=== PATIENT | female | born 1955 | race Caucasian/White ===

== ENCOUNTER 2017-06-22 15:37 | Emergency (ER) | payer OTHER ==
[~2017-06-22] VITALS: Ht 160 cm; Wt 130.0 kg
[~2017-06-22 15:37] MED LIST: AMARYL; AMARYL4 MG PO; ASPIRIN325 MG PO; BENADRYL25 MG PO; BUPROPION HCL150 M2 PO; CLEOCIN300 MG PO; CLINDAMYCIN HC300 MG PO; COMBIVENT INH14.7 GM IH; COMBIVENT RESPIM4 GM IH; COZAAR25 MG PO; CYMBALTA60 MG PO; DULOXETINE; DULOXETINE HCL30 MG PO; DULOXETINE HCL60 MG PO; EPIPEN ADU0.3 MG/0.3 IM; GLIMEPIRIDE4 MG PO; LANTUS; LANTUS 3 M100 UNITS/ SQ; LISINOPRIL; LO-DOSE ASPIRIN81 M1 PO; LOPRESSOR12.5 MG PO; LORTAB 7.5/51 TABLET PO; LYRICA150 MG PO; LYRICA75 MG PO; MEDROL DOSEPAK4 MG PO; NEURONTIN; NEURONTIN300 MG PO; NOVOLOG MI100 UNIT/M PO; NOVOLOG PE100 UNITS/ SC; OXYCODONE-APAP1 EACH PO; PEPCID20 MG PO; PLAVIX75 MG PO; SIMVASTATIN10 MG PO; TOUJEO SOL300 UNIT/1 SC; TRAMADOL; TRAMADOL HCL50 MG PO; ULTRAM50 MG PO; VICODIN; ZOCOR
[2017-06-22 17:08] LABS: HEMATOCRIT 53.5 % (36.0-46.0); MCH 29.3 PG (29.0-34.0); MCV 91.8 FL (83-99); MEAN PLAT.VOLUME 11.1 uM^3 (9.5-12.4); PLATELET COUNT 119 K/uL (156-360); RBC DIS.WIDTH-CV 14.5 % (11.8-14.6); RED BLOOD COUNT 5.83 M/uL (3.80-5.20)
[2017-06-22 17:16] LABS: CHLORIDE 106 mEq/L (99-109); POTASSIUM 4.3 mEq/L (3.7-5.4); SODIUM 142 mEq/L (136-147)
[2017-06-22 17:18] LABS: GLUCOSE 268 mg/dL (70-99)
[2017-06-22 17:19] LABS: ANION GAP 9 MEQ/L (2-14)
[2017-06-22 17:21] LABS: GFR ESTIMATE (CALCULATED) 44 mL/min/
[2017-06-22 17:22] LABS: UREA NITROGEN (BUN) 18 mg/dL (9-23)
[2017-06-22] MEDS ORDERED: NORCO 5/3251 TABLET PO (18:35)
[2017-06-22] MEDS ORDERED: CLEOCIN300 MG PO (18:35)
[2017-06-22 19:33] VITALS: BP 163/75
== END 2017-06-22 19:35 | disposition home or self-care (01) ==
LOC: EME 15:37
PROVIDERS: Physician Assistant
DX: L03.114 Cellulitis of left upper limb (principal); I12.9 Hypertensive chronic kidney disease with stage 1 through stage 4 chronic kidney disease, or unspecified chronic kidney disease; E11.22 Type 2 diabetes mellitus with diabetic chronic kidney disease; N18.9 Chronic kidney disease, unspecified; Z79.4 Long term (current) use of insulin; I25.2 Old myocardial infarction; E78.5 Hyperlipidemia, unspecified; Z86.73 Personal history of transient ischemic attack (TIA), and cerebral infarction without residual deficits; Z88.6 Allergy status to analgesic agent; Z88.2 Allergy status to sulfonamides; Z88.0 Allergy status to penicillin; F17.200 Nicotine dependence, unspecified, uncomplicated
CPT/HCPCS: 80048; 83605; 85027; 87040; 93971; 99281; 99285; J7030

== ENCOUNTER 2018-01-11 21:51 | Emergency (ER) | payer OTHER ==
[~2018-01-11] VITALS: Ht 160 cm; Wt 130.7 kg
[~2018-01-11 21:51] MED LIST changes: +NORCO 5/3251 TABLET PO
[2018-01-11 23:17] LABS: HEMOGLOBIN 17.8 G/DL (11.9-15.5); MCH 30.3 PG (29.0-34.0); PLATELET COUNT 110 K/uL (156-360); RBC DIS.WIDTH-CV 15.8 % (11.8-14.6); RBC DIS.WIDTH-SD 53.2 % (39-53); RED BLOOD COUNT 5.87 M/uL (3.80-5.20); WHITE BLOOD COUNT 9.1 K/uL (4.1-10.2)
[2018-01-11 23:22] LABS: CHLORIDE 102 mEq/L (99-109); POTASSIUM 5.5 mEq/L (3.7-5.4); SODIUM 138 mEq/L (136-147)
[2018-01-11 23:23] LABS: GLUCOSE 304 mg/dL (70-99)
[2018-01-11 23:27] LABS: CREATININE 1.6 mg/dL (0.6-1.3); GFR ESTIMATE (CALCULATED) 35 mL/min/
[2018-01-11 23:28] LABS: UREA NITROGEN (BUN) 28 mg/dL (9-23)
[2018-01-12] MEDS ORDERED: DOXYCYCLINE MO100 MG PO (00:07)
[2018-01-12 00:26] VITALS: BP 115/57
== END 2018-01-12 00:27 | disposition home or self-care (01) ==
LOC: EME 21:51
PROVIDERS: Physician Assistant
PROC: 0H9NXZZ Drainage of Left Foot Skin, External Approach (ICD-10-PCS; principal; 2018-01-11)
DX: L03.116 Cellulitis of left lower limb (principal); E11.40 Type 2 diabetes mellitus with diabetic neuropathy, unspecified; E11.22 Type 2 diabetes mellitus with diabetic chronic kidney disease; I13.0 Hypertensive heart and chronic kidney disease with heart failure and stage 1 through stage 4 chronic kidney disease, or unspecified chronic kidney disease; N18.9 Chronic kidney disease, unspecified; J44.9 Chronic obstructive pulmonary disease, unspecified; E78.5 Hyperlipidemia, unspecified; I25.10 Atherosclerotic heart disease of native coronary artery without angina pectoris; K21.9 Gastro-esophageal reflux disease without esophagitis; F41.9 Anxiety disorder, unspecified; F32.9 Major depressive disorder, single episode, unspecified; F17.200 Nicotine dependence, unspecified, uncomplicated; I25.2 Old myocardial infarction; Z79.4 Long term (current) use of insulin; Z79.82 Long term (current) use of aspirin; Z79.02 Long term (current) use of antithrombotics/antiplatelets; Z95.5 Presence of coronary angioplasty implant and graft; Z86.73 Personal history of transient ischemic attack (TIA), and cerebral infarction without residual deficits; Z85.9 Personal history of malignant neoplasm, unspecified; Z90.710 Acquired absence of both cervix and uterus; Z88.5 Allergy status to narcotic agent; Z88.2 Allergy status to sulfonamides; Z88.1 Allergy status to other antibiotic agents; Z88.0 Allergy status to penicillin
CPT/HCPCS: 73630; 80048; 85027; 94640; 99281; 99285; J7050

== ENCOUNTER 2018-04-29 15:32 | Inpatient (IN) | payer OTHER ==
[~2018-04-29] VITALS: Ht 160 cm; Wt 134.5 kg
[~2018-04-29 15:32] MED LIST changes: +DOXYCYCLINE MO100 MG PO; -LYRICA150 MG PO; +LYRICA200 MG PO
[2018-04-29 17:09] LABS: HEMATOCRIT 49.8 % (36.0-46.0); HEMOGLOBIN 16.8 G/DL (11.9-15.5); MCH 31.1 PG (29.0-34.0); MCHC 33.7 G/DL (30.0-36.0); MCV 92.1 FL (83-99); PLATELET COUNT 144 K/uL (156-360); RBC DIS.WIDTH-SD 47.2 % (39-53); RED BLOOD COUNT 5.41 M/uL (3.80-5.20); WHITE BLOOD COUNT 10.8 K/uL (4.1-10.2)
[2018-04-29 17:17] LABS: CHLORIDE 103 mEq/L (99-109); POTASSIUM 4.3 mEq/L (3.7-5.4); SODIUM 137 mEq/L (136-147)
[2018-04-29 17:19] LABS: GLUCOSE 286 mg/dL (70-99)
[2018-04-29 17:23] LABS: CREATININE 1.4 mg/dL (0.6-1.3); GFR ESTIMATE (CALCULATED) 40 mL/min/
[2018-04-29 17:24] LABS: UREA NITROGEN (BUN) 19 mg/dL (9-23)
[2018-04-29] MEDS ORDERED: CYMBALTA60 MG PO (19:20)
[2018-04-29] MEDS ORDERED: BACTROBAN OINTM22 GM TP (19:24)
[2018-04-29] MEDS ORDERED: CALCIPOTRIENE60 G1 TP (19:24)
[2018-04-29] MEDS ORDERED: NITROSTAT0.4 MG SL (19:25)
[2018-04-29] MEDS ORDERED: TRULICITY1.5 MG/0.5 SC (19:25)
[2018-04-29] MEDS ORDERED: ZYBAN 150 MG T150 MG PO (19:26)
[2018-04-29] MEDS ORDERED: FLOVENT 22120 INHALA IH (19:26)
[2018-04-29 23:06] VITALS: BP 185/95
[2018-04-30 04:31] VITALS: BP 146/71
[2018-04-30 07:03] LABS: BASOPHIL (%) 0.1 % (0-1); EOSINOPHIL (%) 0 % (0-5); HEMATOCRIT 50.5 % (36.0-46.0); HEMOGLOBIN 16.2 G/DL (11.9-15.5); IMMATURE GRANULOCYTE (%) 2.2 % (0.0-0.7); LYMPHOCYTE (%) 4.7 % (15-42); LYMPHOCYTE COUNT 0.4 K/uL (1.0-2.8); MCH 29.8 PG (29.0-34.0); MCHC 32.1 G/DL (30.0-36.0); MCV 92.8 FL (83-99); MONOCYTE (%) 1.4 % (3-12); MONOCYTE COUNT 0.1 K/uL (0-0.8); NEUTROPHIL (%) 91.6 % (45-76); NEUTROPHIL COUNT 8.5 K/uL (1.8-6.4); PLATELET COUNT 141 K/uL (156-360); RBC DIS.WIDTH-CV 14.1 % (11.8-14.6); RED BLOOD COUNT 5.44 M/uL (3.80-5.20); WHITE BLOOD COUNT 9.2 K/uL (4.1-10.2)
[2018-04-30 07:34] VITALS: BP 141/72
[2018-04-30 07:39] LABS: CHLORIDE 101 MEQ/L (99-109); CREATININE 1.5 MG/DL (0.6-1.3); GFR ESTIMATE (CALCULATED) 37 mL/min/; GLUCOSE 474 mg/dL (70-99); POTASSIUM 4.9 MEQ/L (3.7-5.4); SODIUM 136 MEQ/L (136-147); UREA NITROGEN (BUN) 28 mg/dL (9-23)
[2018-04-30 10:07] LABS: HEMOGLOBIN A1c (GLYCOHEMOGLOB) 8.8 % (Below 5.7)
[2018-04-30 11:47] VITALS: BP 144/68
[2018-04-30 15:17] VITALS: BP 146/71
[2018-04-30 19:22] VITALS: BP 144/66
[2018-04-30 23:50] VITALS: BP 139/65
[2018-05-01 04:12] VITALS: BP 146/66
[2018-05-01 06:37] LABS: BASOPHIL (%) 0.2 % (0-1); EOSINOPHIL (%) 0.5 % (0-5); HEMATOCRIT 50.3 % (36.0-46.0); HEMOGLOBIN 15.7 G/DL (11.9-15.5); LYMPHOCYTE (%) 12.5 % (15-42); LYMPHOCYTE COUNT 1.1 K/uL (1.0-2.8); MCH 29.2 PG (29.0-34.0); MCHC 31.2 G/DL (30.0-36.0); MCV 93.7 FL (83-99); MONOCYTE (%) 5.2 % (3-12); MONOCYTE COUNT 0.5 K/uL (0-0.8); NEUTROPHIL (%) 80.6 % (45-76); PLATELET COUNT 133 K/uL (156-360); RBC DIS.WIDTH-CV 13.9 % (11.8-14.6); RBC DIS.WIDTH-SD 48.7 % (39-53); RED BLOOD COUNT 5.37 M/uL (3.80-5.20); WHITE BLOOD COUNT 8.7 K/uL (4.1-10.2)
[2018-05-01 06:57] LABS: CHLORIDE 107 MEQ/L (99-109); CREATININE 1.4 MG/DL (0.6-1.3); GFR ESTIMATE (CALCULATED) 40 mL/min/; GLUCOSE 264 mg/dL (70-99); POTASSIUM 4.6 MEQ/L (3.7-5.4); UREA NITROGEN (BUN) 30 mg/dL (9-23)
[2018-05-01 06:58] LABS: SODIUM 143 MEQ/L (136-147)
[2018-05-01 08:20] VITALS: BP 136/95
[2018-05-01 11:50] VITALS: BP 161/74
[2018-05-01 15:35] VITALS: BP 151/68
[2018-05-01 19:15] VITALS: BP 136/74
[2018-05-01 23:14] VITALS: BP 113/53
[2018-05-02 05:19] VITALS: BP 140/65
[2018-05-02 07:19] VITALS: BP 140/81
[2018-05-02 07:51] LABS: BASOPHIL (%) 0.5 % (0-1); EOSINOPHIL (%) 1.7 % (0-5); EOSINOPHIL COUNT 0.1 K/uL (0-0.3); HEMATOCRIT 49.3 % (36.0-46.0); HEMOGLOBIN 15.7 G/DL (11.9-15.5); IMMATURE GRANULOCYTE (%) 1.8 % (0.0-0.7); LYMPHOCYTE (%) 18.4 % (15-42); LYMPHOCYTE COUNT 1.4 K/uL (1.0-2.8); MCH 29.8 PG (29.0-34.0); MCHC 31.8 G/DL (30.0-36.0); MCV 93.7 FL (83-99); MONOCYTE (%) 5.5 % (3-12); MONOCYTE COUNT 0.4 K/uL (0-0.8); NEUTROPHIL (%) 72.1 % (45-76); NEUTROPHIL COUNT 5.6 K/uL (1.8-6.4); PLATELET COUNT 148 K/uL (156-360); RBC DIS.WIDTH-CV 14.3 % (11.8-14.6); RBC DIS.WIDTH-SD 49.3 % (39-53); RED BLOOD COUNT 5.26 M/uL (3.80-5.20); WHITE BLOOD COUNT 7.8 K/uL (4.1-10.2)
[2018-05-02 08:06] LABS: ALBUMIN 2.8 G/DL (3.2-4.8); ALKALINE PHOSPHATASE 67 IU/L (3-129); ALT (GPT) 12 IU/L (3-49); AST (GOT) 10 IU/L (2-34); CHLORIDE 106 MEQ/L (99-109); CREATININE 1.2 MG/DL (0.6-1.3); GFR ESTIMATE (CALCULATED) 48 mL/min/; GLUCOSE 200 mg/dL (70-99); POTASSIUM 4.4 MEQ/L (3.7-5.4); SODIUM 140 MEQ/L (136-147); TOTAL BILIRUBIN 0.3 MG/DL (0.0-1.0); TOTAL PROTEIN 5.5 G/DL (6.4-8.3); UREA NITROGEN (BUN) 32 mg/dL (9-23)
[2018-05-02 12:21] VITALS: BP 144/74
[2018-05-02] MEDS ORDERED: DOXYCYCLINE HY100 MG PO (14:15)
[2018-05-02] MEDS ORDERED: OXYCODONE-APAP1 EACH PO (14:23)
[2018-05-02] MEDS ORDERED: TRAMADOL HCL50 MG PO (14:23)
== END 2018-05-02 16:41 | disposition home or self-care (01) | DRG 616 ==
LOC: EME 15:32 → 3EAST 20:49 → EDOF 20:49 → ENRESERV 21:00 → 3EAST 22:56
PROVIDERS: Hospitalist; Internal Medicine; Physician Assistant Medical
PROC: 0H9NXZX Drainage of Left Foot Skin, External Approach, Diagnostic (ICD-10-PCS; principal; 2018-04-29)
PROC: 0Y6Y0Z0 Detachment at Left 5th Toe, Complete, Open Approach (ICD-10-PCS; 2018-04-30)
DX: E11.69 Type 2 diabetes mellitus with other specified complication (principal); E11.52 Type 2 diabetes mellitus with diabetic peripheral angiopathy with gangrene; M86.172 Other acute osteomyelitis, left ankle and foot; E66.01 Morbid (severe) obesity due to excess calories; E11.628 Type 2 diabetes mellitus with other skin complications; L03.032 Cellulitis of left toe; I25.10 Atherosclerotic heart disease of native coronary artery without angina pectoris; E11.22 Type 2 diabetes mellitus with diabetic chronic kidney disease; E78.00 Pure hypercholesterolemia, unspecified; J44.9 Chronic obstructive pulmonary disease, unspecified; Z68.43 Body mass index [BMI] 50.0-59.9, adult; A48.0 Gas gangrene; E11.40 Type 2 diabetes mellitus with diabetic neuropathy, unspecified; Z89.421 Acquired absence of other right toe(s); N18.3 Chronic kidney disease, stage 3 (moderate); I12.9 Hypertensive chronic kidney disease with stage 1 through stage 4 chronic kidney disease, or unspecified chronic kidney disease; E78.5 Hyperlipidemia, unspecified; F17.200 Nicotine dependence, unspecified, uncomplicated; K21.9 Gastro-esophageal reflux disease without esophagitis; K46.9 Unspecified abdominal hernia without obstruction or gangrene; L03.116 Cellulitis of left lower limb; Z86.73 Personal history of transient ischemic attack (TIA), and cerebral infarction without residual deficits; Z85.42 Personal history of malignant neoplasm of other parts of uterus; E11.610 Type 2 diabetes mellitus with diabetic neuropathic arthropathy; Z79.4 Long term (current) use of insulin; Z90.710 Acquired absence of both cervix and uterus
CPT/HCPCS: 73630; 74018; 80048; 80053; 82948; 83036; 83605; 85025; 85027; 87040; 87070; 87075; 87076; 87205; 88305; 88311; 93005; 94640; 94640 76; 99202; 99281; 99285; J0696; J1200; J1644; J1815; J2250; J2930; J7030; S0020; S0030; S0073